=== PATIENT | male | born 1985 | race Caucasian/White ===

== ENCOUNTER 2024-01-20 17:43 | Emergency (ER) | payer BC, SELFPAY ==
[2024-01-20 18:08] VITALS: BP 127/79; PULSE 99; RESP 18; TEMP 37.2; O2SAT 100
[2024-01-20 18:09] VITALS: BP 127/79; PULSE 99; RESP 18; TEMP 37.2; O2SAT 100
--- NOTE | 2024-01-20 18:18 | ED.URI ---
HPI - URI/Sore Throat General Chief Complaint: Upper Respiratory Infection Stated Complaint: cold symptoms/ cold sweats Time Seen by Provider: 01/20/24 18:18 History of Present Illness HPI Narrative: patient presents with complaints of sudden onset of body aches. He reports that he has had a fever, chills, sweats. He has not taken anything for his symptoms prior to arrival. He reports his most disturbing symptom is the body aches. Related Data Home Medications Medication Instructions Recorded Confirmed No Home Medications 01/20/24 01/20/24 Allergies Allergy/AdvReac Type Severity Reaction Status Date / Time No Known Allergies Allergy Verified 01/20/24 18:09 Review of Systems Review of Systems: All systems reviewed & are unremarkable except as noted in HPI and below Constitutional: Constitutional: Reports as per HPI, Reports no additional constitutional complaints, Reports body ache(s), Reports chills, Reports excessive sweating and Reports fever(s) ENT: Reports system reviewed and no additional complaints, except as documented and Reports as per HPI Cardiovascular: Cardiovascular: Reports as per HPI and Reports no additional cardiovascular complaints Respiratory: Respiratory: Reports as per HPI and Reports no additional respiratory complaints Gastrointestinal: Gastrointestinal: Reports no additional gastrointestinal complaints Musculoskeletal: Musculoskeletal: Reports no additional musculoskeletal complaints, Reports as per HPI and Reports back pain PMFSH Family History Family History Father Hypertension Mother Family history of cardiovascular disease, Onset Age: 46 Social History Social History Smoking status: Light tobacco smoker Alcohol intake: current Exam Const: General: cooperative, no acute distress, alert and awake Orientation/consciousness: oriented to person, oriented to place and oriented to time HENMT: Head: normal to inspection Mouth: Yes oropharynx normal Resp: Effort & Inspection: normal respiratory effort and able to speak in complete sentences Auscultation: clear to auscultation bilaterally, no crackles, no rales, no rhonchi and no wheezes Cardio: Palpation: normal PMI Rate: regular rate Rhythm: regular rhythm Heart sounds: S1 normal heart sound present and S2 normal heart sound present Neuro: General: oriented to person, oriented to place and oriented to time Cranial nerves: Yes CN's II-XII intact bilaterally Psych: Appearance: grossly normal Thought process: Normal thought process present Insight: Good insight present (Psych) Judgement: Good judgement present (Psych) Course Course Level of Care: Express Care Visit Vital Signs Vital signs: Vital Signs Temperature 99 F 01/20/24 18:08 Pulse Rate 99 01/20/24 18:08 Respiratory Rate 18 01/20/24 18:08 Blood Pressure 127/79 01/20/24 18:08 Pulse Oximetry 100 01/20/24 18:08 Oxygen Delivery Room Air 01/20/24 18:08 Temperature 99 F 01/20/24 18:09 Pulse Rate 99 01/20/24 18:09 Respiratory Rate 18 01/20/24 18:09 Blood Pressure 127/79 01/20/24 18:09 Pulse Oximetry 100 01/20/24 18:09 Oxygen Delivery Room Air 01/20/24 18:09 MDM - URI/Sore Throat MDM Narrative Medical decision making narrative: Patient with reassuring physical exam. Negative flu, positive COVID. Discussed with him the importance of symptomatic treatment. was present for discussion and is in agreement, patient agrees as well. Work note provided. Emergency department for new or worse symptoms. Follow up with primary care provider. Discharge instructions reviewed with patient, as well as provided in writing per nursing staff. The instructions also include specific and strict return/GO TO THE ER as well as f/u information. All questions have been answered, and the patient deny
[2024-01-20 18:39] LABS: EDINFLUASCREEN Negative; EDINFLUBSCREEN Negative
== END 2024-01-20 18:43 | disposition home or self-care (01) ==
PROVIDERS: Emergency Provider Nurse Practitioner Family; PCP Nurse Practitioner Family
DX: U07.1 COVID-19 (principal); F17.210 Nicotine dependence, cigarettes, uncomplicated
CPT/HCPCS: 87426; 87804; 99213; G0463

== ENCOUNTER 2024-11-02 15:08 | Outpatient (CLI) | payer BC, SELFPAY ==
--- NOTE | ~2024-11-02 | XR_ITS ---
Supine and upright views of the abdomen Clinical history: Abdominal pain Findings: Bowel gas pattern is nonspecific. No evidence for obstruction or free air. No abnormal mass lesion or calcification is seen. Osseous structures are intact. Impression: No significant abnormality is seen. Reviewed, dictated and finalized at [facility]. Impression: No significant abnormality is seen.
--- NOTE | ~2024-11-02 | XR_ITS ---
Lumbosacral Spine: AP and lateral views Clinical History: Pain Findings: The normal lordotic curve is maintained. The vertebral bodies and posterior elements are i ntact. The intervertebral disc spaces are preserved. Mild facet arthropathy present throughout the l umbar spine. The sacroiliac joints are normally outlined. Impression: Mild facet arthropathy throughout the lumbar spine. Reviewed, dictated and finalized at location . Impression: Mild facet arthropathy throughout the lumbar spine.
--- NOTE | ~2024-11-02 | XR_ITS ---
EXAMINATION: XR chest 1V 11/02/2024 15:27 INDICATION: Chronic low back and abdomen pain PROCEDURE: PA view of the chest COMPARISON: No prior studies for comparison. FINDINGS: The lungs are clear. The cardiomediastinal silhouette is within normal limits. There are no pleural effusions. There is no pneumothorax suspected. IMPRESSION: 1: NO ACUTE CARDIOPULMONARY DISEASE. Reviewed, dictated and finalized at location A.
== END 2024-11-02 15:09 | disposition home or self-care (01) ==
LOC: MICIMG 15:10
PROVIDERS: PCP Nurse Practitioner Family; Visit Provider Nurse Practitioner Family
DX: M47.816 Spondylosis without myelopathy or radiculopathy, lumbar region (principal); R10.9 Unspecified abdominal pain
CPT/HCPCS: 71045; 72100; 74019